=== PATIENT | male | born 1960 | race Caucasian/White ===

== ENCOUNTER 2018-06-10 05:54 | Emergency (ER) | payer BC ==
[~2018-06-10] VITALS: Ht 172.7 cm; Wt 74.4 kg
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
--- NOTE | 2018-06-10 06:25 | NUR ---
CXR and xray of left toes in progress
--- NOTE | 2018-06-10 06:30 | NUR ---
Xrays done, pt tolerated procedure
--- NOTE | 2018-06-10 07:35 | NUR ---
Report given to LEONIE Smith for DEANGELO.
--- NOTE | 2018-06-10 08:04 | NUR ---
Patient discharged to home in stable condition. Written and verbal after care instructions given. Patient verbalizes understanding of instruction.
[2018-06-10 08:07] VITALS: BP 142/78
== END 2018-06-10 08:08 | disposition home or self-care (01) ==
LOC: ER 06:02
DX: S20.211A Contusion of right front wall of thorax, initial encounter (principal); S90.122A Contusion of left lesser toe(s) without damage to nail, initial encounter; V49.49XA Driver injured in collision with other motor vehicles in traffic accident, initial encounter; Y93.89 Activity, other specified; Y92.410 Unspecified street and highway as the place of occurrence of the external cause; Y99.8 Other external cause status
CPT/HCPCS: 71045; 73660; 99283; A4606; Z7610